=== PATIENT | female | born 1945 | race Hispanic/Latino ===

== ENCOUNTER 2018-01-17 22:06 | Emergency (ER) | payer MEDICARE ==
[~2018-01-17] VITALS: Ht 162.6 cm; Wt 83.9 kg
== END 2018-01-17 22:54 | disposition home or self-care (01) ==
LOC: FSED 22:06
DX: H92.01 Otalgia, right ear (principal); H61.23 Impacted cerumen, bilateral
CPT/HCPCS: 99283